=== PATIENT | male | born 1950 | race Two or more races ===

== ENCOUNTER → 2024-06-25 | Outpatient (CLI) | payer MEDICARE, OTHER, SELFPAY ==
[2024-06-25 16:24] LABS: Basophils % (Auto) 0 % (0-2.5); Eosinophils # (Auto) 0.2 Thou/mm3 (0.0-0.5); Eosinophils % (Auto) 2 % (0-10); Hematocrit 43.4 % (41.0-53.0); Hemoglobin 15.2 g/dL (13.5-16.0); Immature Granulocytes % (Auto) 1 % (0-0); Immature Granulocytes Auto 0.04 Thou/mm3 (0.00-0.00); Lymphocytes # (Auto) 0.6 Thou/mm3 (1.0-4.8); Lymphocytes % (Auto) 8 % (10-50); Mean Corpuscular Hemoglobin 30.2 pg (25.0-35.0); Mean Corpuscular Volume 86 fL (80-100); Monocytes # (Auto) 0.5 Thou/mm3 (0.0-0.8); Monocytes % (Auto) 6 % (0-12); Neutrophils # (Auto) 6.5 Thou/mm3 (1.8-7.7); Neutrophils % (Auto) 83 % (37-80); Nucleated Red Blood Cell % 0 /100 WBC (0); Platelet Count 176 Thou/mm3 (140-440); RDW Standard Deviation 43.2 fL (35.1-43.9); Red Blood Count 5.03 Miln/mm3 (4.50-5.90); White Blood Count 7.8 Thou/mm3 (3.8-10.6)
[2024-06-25 16:42] LABS: Alanine Aminotransferase 26 U/L (10-49); Albumin/Globulin Ratio 2.1 (1.2-2.2); Alkaline Phosphatase 90 U/L (46-116); Anion Gap 6 (7-16); Aspartate Amino Transferase < 10 U/L (0-34); BUN/Creatinine Ratio 22 Ratio (12-20); Bilirubin,Total 0.5 mg/dL (0.3-1.2); Blood Urea Nitrogen 20 mg/dL (9-23); Calcium 9.2 mg/dL (8.3-10.6); Calcium (Corrected) 9.2 mg/dL (8.5-10.1); Carbon Dioxide 26.2 mMol/L (20.0-31.0); Chloride 106 mMol/L (98-107); Creatinine (Component) 0.9 mg/dL (0.6-1.3); Globulin 1.9 gm/dL (2.3-3.5); Glucose 92 mg/dL (74-106); LDH (Lactate Dehydrogenase) 356 U/L (120-246); Osmolality,Calculated 278 (275-295); Potassium 4.4 mMol/L (3.4-5.1); Sed Rate (ESR) 5 mm/hr (0-20); Sodium 138 mMol/L (136-145); Total Protein 5.9 gm/dL (5.7-8.2); eGFR > 60 See Note
[2024-07-04 06:26] LABS: Beta 2 Microglobulin 2.06 mg/L (< OR = 2.51)
== END | disposition home or self-care (01) ==
LOC: SCTO 15:40
PROVIDERS: PCP Family Medicine; Referring Provider Internal Medicine Hematology & Oncology; Visit Provider Internal Medicine Hematology & Oncology
DX: C82.90 Follicular lymphoma, unspecified, unspecified site (principal)
CPT/HCPCS: 36415; 80053; 82232; 83615; 85025; 85652

== ENCOUNTER 2024-06-26 09:38 | Outpatient (RCR) | payer MEDICARE, OTHER, SELFPAY | END 2024-07-07 23:59 | disposition home or self-care (01) | LOC: SCTC 09:38 | PROVIDERS: PCP Family Medicine; Referring Provider Family Medicine; Visit Provider Nurse Practitioner Family | DX: C82.14 Follicular lymphoma grade II, lymph nodes of axilla and upper limb (principal); Z92.3 Personal history of irradiation; R91.1 Solitary pulmonary nodule; N40.0 Benign prostatic hyperplasia without lower urinary tract symptoms | CPT/HCPCS: 99212; G0463 ==

== ENCOUNTER → 2024-07-30 | Outpatient (CLI) | payer MEDICARE, OTHER, SELFPAY ==
[2024-07-30 16:41] LABS: Basophils % (Auto) 1 % (0-2.5); Eosinophils # (Auto) 0.7 Thou/mm3 (0.0-0.5); Eosinophils % (Auto) 9 % (0-10); Hematocrit 42.3 % (41.0-53.0); Hemoglobin 14.5 g/dL (13.5-16.0); Immature Granulocytes % (Auto) 1 % (0-0); Immature Granulocytes Auto 0.04 Thou/mm3 (0.00-0.00); Lymphocytes # (Auto) 0.6 Thou/mm3 (1.0-4.8); Lymphocytes % (Auto) 7 % (10-50); Mean Corpuscular HGB Conc 34.3 g/dl (31.0-37.0); Mean Corpuscular Volume 88 fL (80-100); Monocytes # (Auto) 0.5 Thou/mm3 (0.0-0.8); Monocytes % (Auto) 7 % (0-12); Neutrophils # (Auto) 5.7 Thou/mm3 (1.8-7.7); Neutrophils % (Auto) 76 % (37-80); Nucleated Red Blood Cell % 0 /100 WBC (0); Platelet Count 175 Thou/mm3 (140-440); RDW Standard Deviation 42.5 fL (35.1-43.9); Red Blood Count 4.83 Miln/mm3 (4.50-5.90); White Blood Count 7.5 Thou/mm3 (3.8-10.6)
[2024-07-30 17:09] LABS: Alanine Aminotransferase 27 U/L (10-49); Albumin, Serum 3.9 gm/dL (3.4-4.8); Albumin/Globulin Ratio 2.2 (1.2-2.2); Alkaline Phosphatase 98 U/L (46-116); Anion Gap 6 (7-16); Aspartate Amino Transferase 19 U/L (0-34); BUN/Creatinine Ratio 22 Ratio (12-20); Bilirubin,Total 0.4 mg/dL (0.3-1.2); Blood Urea Nitrogen 22 mg/dL (9-23); Calcium 8.7 mg/dL (8.3-10.6); Calcium (Corrected) 8.8 mg/dL (8.5-10.1); Carbon Dioxide 27.9 mMol/L (20.0-31.0); Chloride 105 mMol/L (98-107); Globulin 1.8 gm/dL (2.3-3.5); Glucose 108 mg/dL (74-106); Osmolality,Calculated 281 (275-295); Potassium 4.5 mMol/L (3.4-5.1); Sodium 139 mMol/L (136-145); Total Protein 5.7 gm/dL (5.7-8.2); eGFR > 60 See Note
== END | disposition home or self-care (01) ==
LOC: SCTO 15:24
PROVIDERS: PCP Family Medicine; Referring Provider Internal Medicine Hematology & Oncology; Visit Provider Internal Medicine Hematology & Oncology
DX: C82.90 Follicular lymphoma, unspecified, unspecified site (principal)
CPT/HCPCS: 36415; 80053; 85025

== ENCOUNTER → 2024-08-13 | Outpatient (CLI) | payer MEDICARE, OTHER, SELFPAY ==
--- NOTE | 2024-08-13 13:00 | XR_ITS ---
Examination: CT soft tissue neck, with intravenous contrast. 2-D coronal reconstructions. 2-D sagittal reconstructions. Date and time of exam :August 13, 2024 1443 hours INDICATIONS: Left-sided neck swelling one year, diagnosis lymphoma post treatment restaging, PET/CT scan May 31, 2024 multiple left neck lymph nodes. CTDI: vol (mGy):11.3 DLP: (mGycm):337 Technique: 1.25 mm axial sections of the neck of the obtained. Coronal and sagittal reconstructions have been obtained. Intravenous contrast administered 50 cc Isovue-300. Low dose protocols were performed. One or more of the following dose reduction techniques were used; automated exposure control, adjustment of the mA and/or KV according to patient size, use of iterative reconstruction technique. Findings: Symmetrical nasopharynx oropharynx Left carotid triangle lymph nodes, 16 mm X millimeters, 12 mm, 8 mm, 2 mm The larynx appears normal No encroachment upon the subglottic region Thyroid lobes are not enlarged IMPRESSION: No significant change in left neck lymphadenopathy compared to PET CT scan May 31, 2024
--- NOTE | 2024-08-13 13:30 | XR_ITS ---
Examination: CT chest, without intravenous contrast. Sagittal and coronal 2-D reconstructions. Exam date and time: August 13, 2024 1335 hours INDICATIONS: CT chest September 15, 2023 subcentimeter pulmonary nodules, axillary lymphadenopathy, diagnosis follicular lymphoma CTDI:vol (mGy) 11.8 DLP: (mGycm) 459 Technique: Multiple 3.0 mm axial sections of the chest to been obtained. Bone and lung density settings are obtained. Sagittal and coronal 2-D reconstructions have been obtained. Low dose protocols were performed. One or more of the following dose reduction techniques were used; automated exposure control, adjustment of the mA and/or KV according to patient size, use of iterative reconstruction technique. Findings: No thoracic degenerative aneurysm dilatation Pulmonary artery segments are not enlarged No paratracheal tracheobronchial or bronchopulmonary adenopathy The patient's axillary lymphadenopathy on the right side has decreased in size and number No interval pneumonia or pulmonary edema Stable subcentimeter bilateral pulmonary nodules Stable 22 mm right lobe liver lesion No hydronephrosis IMPRESSION: Decrease in right axillary lymphadenopathy, stable subcentimeter bilateral pulmonary nodules
== END | disposition home or self-care (01) ==
LOC: SCAT 12:55
PROVIDERS: PCP Family Medicine; Referring Provider Nurse Practitioner Family; Visit Provider Nurse Practitioner Family
DX: R59.0 Localized enlarged lymph nodes (principal); R91.8 Other nonspecific abnormal finding of lung field; C82.90 Follicular lymphoma, unspecified, unspecified site
CPT/HCPCS: 70491; 71250; A4649; Q9967

== ENCOUNTER 2024-08-28 14:29 | Outpatient (RCR) | payer MEDICARE, OTHER, SELFPAY ==
--- NOTE | 2024-09-09 15:17 | CTCFLWUP_ITS ---
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 (10/13/2023). 5/? radiation to right neck axilla completed 01/12/2024. BPH s/p TURP DATE OF DIAGNOSIS: 10/13/2023 STAGE/TNM: Follicular lymphoma grade 1 and 2 TREATMENT HISTORY: Care?Plan Start?Date Cycle Day Intent HISTORY OF PRESENT ILLNESS: Mr. Leone is here at [facility]. PET/CT done on 05/31/2024 shows interval hypermetabolic left neck metastatic lymphadenopathy, and interval hypermetabolic 6 mm pulmonary nodule right lobe recommending CT chest without contrast. Patient has palpable lump to left side of neck, no swelling to left axilla, no swelling to right neck, no swelling to right axilla. Patient denies fever cough ear pain sore throat, dysphagia. Patient denies weight loss. Reports good appetite and energy levels. Ambulating well without any assistance. HISTORY: Chris Leone is a 74-year-old ENG speaking male with history of TURP for benign prostatic hyperplasia started noticing a mass lesion growing in his right axilla for the last 18 months. 06/15/2023: Mr. Leone had ultrasound of the soft tissue of right axilla that grade 2023: Patient had CT scan of the chest with IV contrast Mr. Leone had MRI of the abdomen with and without IV contrast? 10/13/2023: Mr. Leone had ultrasound-guided needle biopsy of the large lymph node in the right axilla 11/03/2023: WBC 7.6,, ANC 5.4, hemoglobin 15.5, MCV 87, platelets 187,000, creatinine 0.9, LDH 173, ESR 2, hepatitis panel negative, uric acid 6.7. 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 Tobacco?Use:?Denies ETOH?Use:?Socailly Drug?Note:?Denies Social?History?Note:?Lives?with? MEDICATIONS: 1. amoxicillin - 500 mg 1 tab twice daily 2. lisinopril - 5 mg 1 tab Daily Medications Last Reconciled by Emma Brewer MA on 06/26/2024 ALLERGIES: No Known Drug Allergies REVIEW OF SYSTEMS: A complete 14-point review of systems was performed and is negative except as noted in interval history. PHYSICAL EXAMINATION: VITAL SIGNS: Temperature?98.8, B/P?174/88, Oxygen?Saturation?97% Weight?163.8?lbs PAIN: 0 - No pain ECOG Performance Status: 0 - Asymptomatic and fully active GENERAL APPEARANCE: Appears well, in no apparent distress, appropriately interactive. HEENT: Normocephalic, no temporal wasting, normal conjunctiva, no scleral icterus, normal hearing, lips without lesions, neck normal range of motion. CARDIOVASCULAR: Not assessed. PULMONARY: Normal respiratory effort, no respiratory distress or use of accessory muscles, speaking in full sentences, no tachypnea. EXTREMITIES: No pedal edema or cyanosis. SKIN: Normal skin appearance. NEUROLOGIC: Alert and oriented x4. PSHYCHIATRIC: Appropriate affect, mood normal, behavior normal, intact thought and speech. LABORATORY DATA: I have personally reviewed and interpreted each of the patient?s relevant lab tests, abnormal findings are below: Date 07/30/24 ??WHITE?BLOOD?COUNT?(Thou/mm3) 7.5 ??RED?BLOOD?COUNT?(Miln/mm3) 4.83 ??HEMOGLOBIN?(gm/dl) 14.5 ??HEMATOCRIT?(%) 42.3 ??PLATELET?COUNT?(Thou/mm3) 175 ??NEUTROPHILS?%,?AUTO?(%) 76 ??LYMPH?%,?AUTO?(%) 7?L ??NEUTROPHILS,?AUTO?(Thou/mm3) 5.7 ASSESSMENT/PLAN: Stage I follicular lymphoma grade 1-2, S/p ultrasound-guided biopsy of the right axillary lymphadenopathy. (10/13/2023). S/P radiation to right neck axilla completed 01/12/2024. PET/CT showed interval hypermetabolic left neck metastatic lymphadenopathy, interval non-hypermetabolic 6 mm pulmonary nodule right lower lobe, recommend CT chest without contrast follow-up. 08/13/2024 ct scan shows decrease in size of LNS Neck LNs stable and all below 1 cm. Was treated with Amoxicillin 500mg twice daily for 7 days. No eveidence of symptoms from lymphoma ORDERS: Cbc,cmp,ldh,uric acid RETURN TO CLINIC: 4 months BILLING AND COMPLIANCE: I reviewed external records from providers outside my specialty as summarized above. I spent a total of 50 minutes on this patient?s care on the day of their visit excluding time spent related to any billed procedures. This time includes time spent with the patient as well as time spent documenting in the medical record, reviewing patients records and tests, obtaining history, placing orders, communicating with other healthcare professionals, counseling the patient, family or caregiver, and/or care coordination for the diagnoses above. Electronically Signed by: Odin Llanos MD T: 3:14 PM CC: PCP: Maylin Lewis Referring: Maylin Lewis This document was completed utilizing speech recognition software. Grammatical errors, random word insertions, pronoun errors, and incomplete sentences are an occasional consequence of this system due to software limitations, ambient noise, and hardware issues. Any formal questions or concerns about the content, text or information contained within the body of this dictation should be directly addressed to the provider for clarification.
== END 2024-09-07 23:59 | disposition home or self-care (01) ==
LOC: SCTC 14:29
PROVIDERS: PCP Family Medicine; Referring Provider Registered Nurse; Visit Provider Radiology Therapeutic Radiology
DX: C82.14 Follicular lymphoma grade II, lymph nodes of axilla and upper limb (principal); C77.0 Secondary and unspecified malignant neoplasm of lymph nodes of head, face and neck; Z92.3 Personal history of irradiation; R91.1 Solitary pulmonary nodule
CPT/HCPCS: 99212; G0463

== ENCOUNTER → 2025-03-20 | Outpatient (CLI) | payer MEDICARE, OTHER, SELFPAY ==
[2025-03-20 16:55] LABS: Basophils # (Auto) 0.1 Thou/mm3 (0.0-0.2); Basophils % (Auto) 1 % (0-2.5); Eosinophils # (Auto) 0.4 Thou/mm3 (0.0-0.5); Eosinophils % (Auto) 4 % (0-10); Hematocrit 41.5 % (41.0-53.0); Hemoglobin 14.3 g/dL (13.5-16.0); Immature Granulocytes Auto 0.06 Thou/mm3 (0.00-0.00); Lymphocytes # (Auto) 0.6 Thou/mm3 (1.0-4.8); Lymphocytes % (Auto) 7 % (10-50); Mean Corpuscular HGB Conc 34.5 g/dl (31.0-37.0); Mean Corpuscular Hemoglobin 30.5 pg (25.0-35.0); Mean Corpuscular Volume 89 fL (80-100); Monocytes # (Auto) 0.7 Thou/mm3 (0.0-0.8); Monocytes % (Auto) 8 % (0-12); Neutrophils # (Auto) 7.5 Thou/mm3 (1.8-7.7); Neutrophils % (Auto) 80 % (37-80); Nucleated Red Blood Cell # 0.00 Thou/mm3 (0.00-0.00); Nucleated Red Blood Cell % 0 /100 WBC (0); Platelet Count 169 Thou/mm3 (140-440); RDW Standard Deviation 42.3 fL (35.1-43.9); Red Blood Count 4.69 Miln/mm3 (4.50-5.90); White Blood Count 9.4 Thou/mm3 (3.8-10.6)
[2025-03-20 17:21] LABS: Alanine Aminotransferase 17 U/L (10-49); Albumin, Serum 3.8 gm/dL (3.4-4.8); Albumin/Globulin Ratio 2.2 (1.2-2.2); Alkaline Phosphatase 75 U/L (46-116); Anion Gap 8 (7-16); Aspartate Amino Transferase 18 U/L (0-34); BUN/Creatinine Ratio 15 Ratio (12-20); Bilirubin,Total 0.4 mg/dL (0.3-1.2); Blood Urea Nitrogen 15 mg/dL (9-23); Calcium 9.3 mg/dL (8.3-10.6); Calcium (Corrected) 9.5 mg/dL (8.5-10.1); Carbon Dioxide 24.9 mMol/L (20.0-31.0); Chloride 104 mMol/L (98-107); Creatinine (Component) 1.0 mg/dL (0.6-1.3); Globulin 1.7 gm/dL (2.3-3.5); Glucose 96 mg/dL (74-106); LDH (Lactate Dehydrogenase) 172 U/L (120-246); Osmolality,Calculated 274 (275-295); Potassium 4.0 mMol/L (3.4-5.1); Sodium 137 mMol/L (136-145); Total Protein 5.5 gm/dL (5.7-8.2); Uric Acid 5.9 mg/dL (3.7-9.2); eGFR > 60 See Note
== END | disposition home or self-care (01) ==
LOC: SCTO 14:12
PROVIDERS: PCP Family Medicine; Referring Provider Internal Medicine Hematology & Oncology; Visit Provider Internal Medicine Hematology & Oncology
DX: C82.90 Follicular lymphoma, unspecified, unspecified site (principal)
CPT/HCPCS: 36415; 80053; 83615; 84550; 85025

== ENCOUNTER 2025-03-25 13:52 | Outpatient (RCR) | payer MEDICARE, OTHER, SELFPAY ==
--- NOTE | 2025-03-25 14:32 | CTCFLWUP_ITS ---
Patient: CHRIS HERNANDEZ : 1950 Page 5 of 6 FOLLOW UP NOTE DATE OF SERVICE: 03/25/2025 NAME: CHRIS HERNANDEZ ACCOUNT: [id number] : 1950 AGE: 74 INTERVAL HISTORY: Patient is doing well. No appeitie changes , no weight loss. No night sweats . No new lumps or bumps. 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 (10/13/2023). 5/? radiation to right neck axilla completed 01/12/2024. BPH s/p TURP DATE OF DIAGNOSIS: 10/13/2023 STAGE/TNM: Follicular lymphoma grade 1 and 2 TREATMENT HISTORY: Care?Plan Start?Date Cycle Day Intent HISTORY OF PRESENT ILLNESS: Mr. Hernandez is here at [facility]. PET/CT done on 05/31/2024 shows interval hypermetabolic left neck metastatic lymphadenopathy, and interval hypermetabolic 6 mm pulmonary nodule right lobe recommending CT chest without contrast. Patient has palpable lump to left side of neck, no swelling to left axilla, no swelling to right neck, no swelling to right axilla. Patient denies fever cough ear pain sore throat, dysphagia. Patient denies weight loss. Reports good appetite and energy levels. Ambulating well without any assistance. HISTORY: Chris Hernandez is a 74-year-old ENG speaking male with history of TURP for benign prostatic hyperplasia started noticing a mass lesion growing in his right axilla for the last 18 months. 06/15/2023: Mr. Hernandez had ultrasound of the soft tissue of right axilla that grade 2023: Patient had CT scan of the chest with IV contrast Mr. Hernandez had MRI of the abdomen with and without IV contrast? 10/13/2023: Mr. Hernandez had ultrasound-guided needle biopsy of the large lymph node in the right axilla 11/03/2023: WBC 7.6,, ANC 5.4, hemoglobin 15.5, MCV 87, platelets 187,000, creatinine 0.9, LDH 173, ESR 2, hepatitis panel negative, uric acid 6.7. 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 Tobacco?Use:?Denies ETOH?Use:?Socailly Drug?Note:?Denies Social?History?Note:?Lives?with? MEDICATIONS: 1. lisinopril - 5 mg 1 tab Daily Medications Last Reconciled by Emma Brewer MA on 03/25/2025 ALLERGIES: No Known Drug Allergies REVIEW OF SYSTEMS: A complete 14-point review of systems was performed and is negative except as noted in interval history. PHYSICAL EXAMINATION: VITAL SIGNS: PAIN: 2 - Mild pain ECOG Performance Status: 0 - Asymptomatic and fully active GENERAL APPEARANCE: Appears well, in no apparent distress, appropriately interactive. HEENT: Normocephalic, no temporal wasting, normal conjunctiva, no scleral icterus, normal hearing, lips without lesions, neck normal range of motion. CARDIOVASCULAR: Not assessed. PULMONARY: Normal respiratory effort, no respiratory distress or use of accessory muscles, speaking in full sentences, no tachypnea. EXTREMITIES: No pedal edema or cyanosis. SKIN: Normal skin appearance. NEUROLOGIC: Alert and oriented x4. PSHYCHIATRIC: Appropriate affect, mood normal, behavior normal, intact thought and speech. LABORATORY DATA: I have personally reviewed and interpreted each of the patient?s relevant lab tests, abnormal findings are below: Date 07/30/24 03/20/25 ??WHITE?BLOOD?COUNT?(Thou/mm3) 7.5 9.4 ??RED?BLOOD?COUNT?(Miln/mm3) 4.83 4.69 ??HEMOGLOBIN?(gm/dl) 14.5 14.3 ??HEMATOCRIT?(%) 42.3 41.5 ??PLATELET?COUNT?(Thou/mm3) 175 169 ??NEUTROPHILS?%,?AUTO?(%) 76 80 ??LYMPH?%,?AUTO?(%) 7?L 7?L ??NEUTROPHILS,?AUTO?(Thou/mm3) 5.7 7.5 ??GLUCOSE,RANDOM?(mg/dL) ? 96 ??BLOOD?UREA?NITROGEN?(mg/dL) ? 15 ??CREATININE?(mg/dL) ? 1.00 ??SODIUM?(mmol/L) ? 137 ??POTASSIUM?(mmol/L) ? 4.0 ??CHLORIDE?(mmol/L) ? 104 ??CrCl?(CandG)?(ml/min) ? 69.14 ??AST/SGOT?(Unit/L) ? 18 ??ALT/SGPT?(Unit/L) ? 17 ??ALKALINE?PHOSPHATASE?(Unit/L) ? 75 ??BILIRUBIN,?TOTAL?(mg/dL) ? 0.4 ??PROTEIN?TOTAL?(gm/dl) ? 5.5?L ??ALBUMIN,?SERUM?(gm/dl) ? 3.8 ??GLOBULIN?(gm/dl) ? 1.7?L ??ALBUMIN/GLOBULIN?RATIO ? 2.2 ??CALCIUM,?SERUM?(mg/dL) ? 9.3 ??CALCIUM?SERUM?(CORRECTED)?(mg/dL) ? 9.5 ??LDH,?TOTAL?(Unit/L) ? 172 ASSESSMENT/PLAN: Stage I follicular lymphoma grade 1-2, S/p ultrasound-guided biopsy of the right axillary lymphadenopathy. (10/13/2023). S/P radiation to right neck axilla completed 01/12/2024. PET/CT showed interval hypermetabolic left neck metastatic lymphadenopathy, interval non-hypermetabolic 6 mm pulmonary nodule right lower lobe, recommend CT chest without contrast follow-up. 08/13/2024 ct scan shows decrease in size of LNS Neck LNs stable and all below 1 cm. Was treated with Amoxicillin 500mg twice daily for 7 days. No eveidence of symptoms from lymphoma RTC in 6 months ORDERS: Order # Description [id number] Comprehensive Metabolic Panel - 12 + CBC with Auto Diff + Uric Acid, Serum + MD Follow Up 6 Month [id number] Lactate Dehydrogenase (LDH) RETURN TO CLINIC: I reviewed the diagnosis, prognosis, and recommended treatment/procedure options with the patient (and/or their legal direct marketing representative), including the potential benefits, risks, side effects and alternative therapies. We also discussed the option of no treatment and the possibility of clinical trial participation, if applicable. All questions were addressed, and they demonstrated understanding. They provided informed consent to proceed with the proposed plan of care. BILLING AND COMPLIANCE: I reviewed external records from providers outside my specialty as summarized above. I spent a total of 50 minutes on this patient?s care on the day of their visit excluding time spent related to any billed procedures. This time includes time spent with the patient as well as time spent documenting in the medical record, reviewing patients records and tests, obtaining history, placing orders, communicating with other healthcare professionals, counseling the patient, family or caregiver, and/or care coordination for the diagnoses above. Electronically Signed by: {Object.Sanct_ID*[email or web address]@M}, {Object.Sanct_ID*PnP.Suffix@U} D: {Object.Sanct_Date} T: {Object.Sanct_Time} CC: PCP: Tania Agosto Referring: Tania Agosto This document was completed utilizing speech recognition software. Grammatical errors, random word insertions, pronoun errors, and incomplete sentences are an occasional consequence of this system due to software limitations, ambient noise, and hardware issues. Any formal questions or concerns about the content, text or information contained within the body of this dictation should be directly addressed to the provider for clarification.
== END 2025-04-07 23:59 | disposition home or self-care (01) ==
LOC: SCTC 13:52
PROVIDERS: PCP Family Medicine; Referring Provider Family Medicine; Visit Provider Internal Medicine Hematology & Oncology
DX: C82.14 Follicular lymphoma grade II, lymph nodes of axilla and upper limb (principal); Z92.3 Personal history of irradiation; R91.1 Solitary pulmonary nodule
CPT/HCPCS: 99212; G0463